=== PATIENT | female | born 1990 | race Caucasian/White ===

== ENCOUNTER 2018-04-26 23:05 | Emergency (ER) | payer SELFPAY ==
[~2018-04-26] VITALS: Ht 167.6 cm; Wt 52.2 kg
[~2018-04-26 23:05] MED LIST: DESV50TA PO; FERR325T28 PO
--- NOTE | 2018-04-26 23:07 | NUR ---
PT BIBSELF FROM HOME FOR FLU LIKE SYMPTOMS. PT AAOX4, RESPIRATIONS EVEN AND UNLABORED, NO SOB, NAD NOTED PT ON MONITOR, VSS, PENDING ER PROVIDER DUDLEY
[2018-04-26] MEDS ORDERED: KETOROLAC TROMETHAMINE INJ 30 MG/ML VIAL ONE (23:57)
[2018-04-26 23:59] LABS: BASOPHILS % (AUTO) 0.2 % (0.0-2.0); HEMATOCRIT 38 % (33-45); HEMOGLOBIN 13.2 g/dL (11.5-14.8); LYMPHOCYTES # (AUTO) 0.4 /CMM (0.8-4.8); LYMPHOCYTES % (AUTO) 6.5 % (20.0-44.0); MEAN CORPUSCULAR HGB CONC 35 g/dl (31.0-36.0); MEAN CORPUSCULAR VOLUME 88 fL (82-100); MONOCYTES # (AUTO) 0.3 /CMM (0.1-1.30); MONOCYTES % (AUTO) 4.9 % (2.0-12.0); NEUTROPHILS # (AUTO) 5.1 /CMM (1.8-8.9); NEUTROPHILS % (AUTO) 88.4 % (43.0-81.0); PLATELET COUNT (AUTO) 118 /CMM (150-450); RED BLOOD CELL COUNT(AUTO) 4.31 MIL/uL (4.0-5.2); WHITE BLOOD COUNT (AUTO) 5.7 K/uL (4.3-11.0)
[2018-04-27] MEDS ORDERED: KETOROLAC TROMETHAMINE INJ 30 MG/ML VIAL IV ONE
[2018-04-27] MEDS ORDERED: IV NS 0.9% 1,000 ML BAG IV ONE
[2018-04-27 00:08] LABS: CALCIUM, SERUM 8.7 mg/dL (8.5-10.1); CARBON DIOXIDE 28 mmol/L (21-32); CHLORIDE 101 mmol/L (98-107); CREATININE 0.7 mg/dL (0.6-1.3); GLUCOSE 149 mg/dL (74-106); POTASSIUM 3.3 mmol/L (3.5-5.1); SODIUM SERUM 137 mmol/L (136-145); UREA NITROGEN, BLOOD 6 mg/dL (7-18)
[2018-04-27 00:14] LABS: ALANINE AMINOTRANSFERASE 24 U/L (12-78); ALBUMIN 3.7 g/dL (3.4-5.0); ALKALINE PHOSPHATASE 64 U/L (46-116); ASPARTATE AMINOTRANSFERASE 23 U/L (15-37); BILIRUBIN,DIRECT 0.1 mg/dL (0.0-0.2); BILIRUBIN,TOTAL 0.3 mg/dL (0.2-1.0); TOTAL PROTEIN, SERUM 7.1 g/dL (6.4-8.2)
[2018-04-27] MEDS ORDERED: OSELTAMIVIR PHOSPHATE 75 MG CAPSULE ONE (01:34)
[2018-04-27] MEDS ORDERED: OSELTAMIVIR PHOSPHATE 75 MG CAPSULE PO ONE (02:00)
[2018-04-27 02:06] VITALS: BP 121/74
--- NOTE | 2018-04-27 02:07 | NUR ---
Patient discharged to home in stable condition. Written and verbal after care instructions given. Patient verbalizes understanding of instruction. IV removed. Catheter intact and site benign. Pressure and 4x4 applied to site. No bleeding noted.
== END 2018-04-27 02:08 | disposition home or self-care (01) ==
LOC: ER 23:05
DX: J18.9 Pneumonia, unspecified organism (principal); F41.9 Anxiety disorder, unspecified; F32.9 Major depressive disorder, single episode, unspecified; F17.200 Nicotine dependence, unspecified, uncomplicated; Z88.1 Allergy status to other antibiotic agents
CPT/HCPCS: 36415; 71045; 80048; 80076; 84484; 85025; 85730; 96360; 96361; 99284; A4606; J7030; Z7610; J1885

== ENCOUNTER 2018-07-16 18:54 | Emergency (ER) | payer SELFPAY ==
[~2018-07-16] VITALS: Ht 167.6 cm; Wt 52.2 kg
--- NOTE | 2018-07-16 19:00 | NUR ---
PT BIBSELF C/O ABD PAIN/CRAMPING X 1 WEEK, DIARRHEA X TODAY. PT AXO4. RESPIRATIONS EVEN AND UNLABORED. PT STATES SHE FEELS THE SAME WHEN SHE WAS DIAGNOSED W/ C. DIFF. PT PUT ON THE MONITOR AND PULSE OX.
--- NOTE | 2018-07-16 19:10 | NUR ---
PT AMBULATED WITH STEADY GAIT TO BATHROOM. URINE SAMPLE OBTAINED.
--- NOTE | 2018-07-16 19:14 | NUR ---
MANDIE SMITH AT BEDSIDE.
--- NOTE | 2018-07-16 19:16 | NUR ---
VERIFICATION SPECIALIST AT BEDSIDE. LABS SENT.
[2018-07-16] MEDS ORDERED: ATROPINE SULFATE INJ 1 MG/ML VIAL ONE (19:18)
[2018-07-16 19:21] LABS: APPEARANCE,URINE Clear (CLEAR); BILIRUBIN,URINE Negative (NEGATIVE); BLOOD, URINE Trace-lysed Ery/uL (NEGATIVE); COLOR,URINE Yellow (YELLOW); KETONES,URINE Negative (NEGATIVE); LEUKOCYTE ESTERASE ,URINE Negative (NEGATIVE); NITRITE, URINE Negative (NEGATIVE); PH,URINE 5.5 (5.0-8.0); PROTEIN,URINE Negative (NEGATIVE); UGLUCOSE Negative (NEGATIVE); UROBILINOGEN,URINE 0.2 EU/dL (0.2)
[2018-07-16 19:29] LABS: BASOPHILS % (AUTO) 0.2 % (0.0-2.0); HEMATOCRIT 39 % (33-45); HEMOGLOBIN 13.2 g/dL (11.5-14.8); LYMPHOCYTES # (AUTO) 0.3 /CMM (0.8-4.8); MEAN CORPUSCULAR HGB CONC 34 g/dl (31.0-36.0); MEAN CORPUSCULAR VOLUME 86 fL (82-100); MONOCYTES # (AUTO) 0.6 /CMM (0.1-1.30); MONOCYTES % (AUTO) 8.3 % (2.0-12.0); NEUTROPHILS # (AUTO) 6.2 /CMM (1.8-8.9); NEUTROPHILS % (AUTO) 87.5 % (43.0-81.0); PLATELET COUNT (AUTO) 159 /CMM (150-450)
[2018-07-16] MEDS ORDERED: IV NS 0.9% 1,000 ML BAG IV ONE (19:30)
[2018-07-16] MEDS ORDERED: ATROPINE SULFATE INJ 1 MG/ML VIAL IV ONE (19:30)
[2018-07-16 19:55] LABS: ALBUMIN 4.3 g/dL (3.4-5.0); BILIRUBIN,DIRECT 0.1 mg/dL (0.0-0.2); BILIRUBIN,TOTAL 0.3 mg/dL (0.2-1.0); CALCIUM, SERUM 8.9 mg/dL (8.5-10.1); CREATININE 0.9 mg/dL (0.6-1.3); POTASSIUM 3.7 mmol/L (3.5-5.1)
[2018-07-16 20:06] LABS: BACTERIA,URINE Rare /HPF (None Seen); SQUAMOUS EPITHELIAL CELL,UR Few /HPF (None Seen); WBC,URINE NONE SEEN /HPF (0-3)
--- NOTE | 2018-07-16 20:20 | NUR ---
PT AMBULATORY W/ STEADY GAIT TO BATHROOM. UNABLE TO GIVE STOOL SAMPLE. ER MEDICAL INVESTIGATOR AWARE.
[2018-07-16 20:22] LABS: TOTAL PROTEIN, SERUM 7.7 g/dL (6.4-8.2)
--- NOTE | 2018-07-16 20:36 | NUR ---
ER SURGICAL TECHNOLOGIST AT BESIDE RE-EVAL.
[2018-07-16 20:58] VITALS: BP 119/71
== END 2018-07-16 20:59 | disposition home or self-care (01) ==
LOC: ER 19:02
DX: R19.7 Diarrhea, unspecified (principal); F41.9 Anxiety disorder, unspecified; F32.9 Major depressive disorder, single episode, unspecified; F17.200 Nicotine dependence, unspecified, uncomplicated; R00.0 Tachycardia, unspecified; Z88.1 Allergy status to other antibiotic agents
CPT/HCPCS: 36415; 80048; 80076; 81001; 83690; 84703; 85025; 85730; 96360; 99283; J7030; 81000-TC; J0461

== ENCOUNTER 2018-11-15 20:16 | Emergency (ER) | payer MEDICAID ==
[~2018-11-15] VITALS: Ht 167.6 cm; Wt 52.2 kg
--- NOTE | 2018-11-15 20:27 | NUR ---
C/C PELVIC PAIN X1WK, BLEEDING IN BETWEEN PERIODS X2MO, INTERMITTENTLY RADIATES TO LOWER BACK. STATES PAIN 4/10. DENIES . FRIEND AT BEDSIDE. IN GOWN, ON MONITOR, READY FOR EVAL.
--- NOTE | 2018-11-15 20:46 | NUR ---
PROGRAM MANAGEMENT MANAGER AT BEDSIDE
[2018-11-15] MEDS ORDERED: IV NS 0.9% 1,000 ML BAG IV ONE (21:00)
[2018-11-15 21:03] LABS: APPEARANCE,URINE Clear (CLEAR); BILIRUBIN,URINE Negative (NEGATIVE); BLOOD, URINE Small Ery/uL (NEGATIVE); COLOR,URINE Yellow (YELLOW); KETONES,URINE Negative (NEGATIVE); LEUKOCYTE ESTERASE ,URINE Negative (NEGATIVE); NITRITE, URINE Negative (NEGATIVE); PROTEIN,URINE Negative (NEGATIVE); UGLUCOSE Negative (NEGATIVE); UROBILINOGEN,URINE 0.2 EU/dL (0.2)
--- NOTE | 2018-11-15 21:03 | NUR ---
IV ACCESS OBTAINED, BLOOD DRAWN AND SENT TO STAT LAB
[2018-11-15 21:04] LABS: BASOPHILS % (AUTO) 0.4 % (0.0-2.0); EOSINOPHILS % (AUTO) 0.6 % (0.0-6.0); HEMATOCRIT 40 % (33-45); HEMOGLOBIN 13.8 g/dL (11.5-14.8); LYMPHOCYTES # (AUTO) 1.1 /CMM (0.8-4.8); MEAN CORPUSCULAR HGB CONC 34 g/dl (31.0-36.0); MEAN CORPUSCULAR VOLUME 86 fL (82-100); MONOCYTES # (AUTO) 0.5 /CMM (0.1-1.30); MONOCYTES % (AUTO) 7.2 % (2.0-12.0); NEUTROPHILS % (AUTO) 74.8 % (43.0-81.0); PLATELET COUNT (AUTO) 227 /CMM (150-450); RED BLOOD CELL COUNT(AUTO) 4.67 MIL/uL (4.0-5.2); WHITE BLOOD COUNT (AUTO) 6.7 K/uL (4.3-11.0)
[2018-11-15 21:12] LABS: BACTERIA,URINE Few /HPF (None Seen); SQUAMOUS EPITHELIAL CELL,UR Few /HPF (None Seen); URINE AMORPHOUS URATE Rare /HPF (None Seen); WBC,URINE 0-2 /HPF (0-3)
[2018-11-15 21:14] LABS: CREATININE 0.7 mg/dL (0.6-1.3); POTASSIUM 3.6 mmol/L (3.5-5.1)
[2018-11-15 21:20] LABS: ALBUMIN 4.3 g/dL (3.4-5.0); BILIRUBIN,DIRECT 0.1 mg/dL (0.0-0.2); BILIRUBIN,TOTAL 0.4 mg/dL (0.2-1.0); TOTAL PROTEIN, SERUM 7.7 g/dL (6.4-8.2)
--- NOTE | 2018-11-15 21:30 | NUR ---
VINNY RODRÍGUEZ AT BEDSIDE FOR PELVIC EXAM
--- NOTE | 2018-11-15 22:52 | NUR ---
VINNY RODRÍGUEZ AT BEDSIDE TO DISCUSS CURRENT PLAN
--- NOTE | 2018-11-15 23:14 | NUR ---
IV removed. Catheter intact and site benign. Pressure and 4x4 applied to site. No bleeding noted.Patient discharged to home in stable condition. Written and verbal after care instructions given. Patient verbalizes understanding of instruction.
[2018-11-15 23:16] VITALS: BP 116/84
== END 2018-11-15 23:17 | disposition home or self-care (01) ==
LOC: ER 20:18
DX: R10.2 Pelvic and perineal pain (principal); F41.9 Anxiety disorder, unspecified; F32.9 Major depressive disorder, single episode, unspecified; F17.200 Nicotine dependence, unspecified, uncomplicated; Z88.1 Allergy status to other antibiotic agents
CPT/HCPCS: 36415; 76856; 80048; 80076; 81001; 84703; 85025; 87086; 87210; 99284; J7030; 81000-TC

== ENCOUNTER 2019-01-20 20:55 | Emergency (ER) | payer MEDICAID ==
[~2019-01-20] VITALS: Ht 167.6 cm; Wt 52.2 kg
[2019-01-20 21:14] VITALS: BP 115/70
== END 2019-01-20 22:15 | disposition home or self-care (01) ==
LOC: ER 20:58
DX: Z76.0 Encounter for issue of repeat prescription (principal); F41.9 Anxiety disorder, unspecified; F32.9 Major depressive disorder, single episode, unspecified; F17.200 Nicotine dependence, unspecified, uncomplicated; Z88.1 Allergy status to other antibiotic agents; Z79.899 Other long term (current) drug therapy

== ENCOUNTER 2019-02-11 14:12 | Emergency (ER) | payer MEDICAID | END 2019-02-11 16:22 | disposition home or self-care (01) | LOC: ER 14:23 | DX: F32.9 Major depressive disorder, single episode, unspecified (principal); N60.12 Diffuse cystic mastopathy of left breast; F41.9 Anxiety disorder, unspecified; F17.200 Nicotine dependence, unspecified, uncomplicated; Z88.1 Allergy status to other antibiotic agents; Z79.899 Other long term (current) drug therapy ==

== ENCOUNTER 2019-03-15 14:54 | Emergency (ER) | payer MEDICAID, OTHER ==
[~2019-03-15] VITALS: Ht 167.6 cm; Wt 54.4 kg
[2019-03-15 15:55] VITALS: BP 101/83
== END 2019-03-15 17:22 | disposition home or self-care (01) ==
LOC: ER 15:02
DX: F32.9 Major depressive disorder, single episode, unspecified (principal); Z76.0 Encounter for issue of repeat prescription; F17.200 Nicotine dependence, unspecified, uncomplicated; F41.9 Anxiety disorder, unspecified; Z88.1 Allergy status to other antibiotic agents; Z79.899 Other long term (current) drug therapy

== ENCOUNTER 2022-05-31 22:33 | Emergency (ER) | payer OTHER ==
[~2022-05-31] VITALS: Ht 167.6 cm; Wt 64.0 kg
[2022-05-31 22:46] VITALS: BP 118/77
--- NOTE | 2022-05-31 22:46 | NUR ---
BIBSELF from home c/o medrefill effexor xr 75 mg
[2022-05-31] MEDS ORDERED: VENL37.55 PO (23:02)
--- NOTE | 2022-05-31 23:20 | NUR ---
Patient discharged to home in stable condition. Written and verbal after care instructions given. Patient verbalizes understanding of instruction.
== END 2022-05-31 23:20 | disposition home or self-care (01) ==
LOC: ER 22:43
DX: Z76.0 Encounter for issue of repeat prescription (principal); F41.9 Anxiety disorder, unspecified; F32.A Depression, unspecified; Z88.8 Allergy status to other drugs, medicaments and biological substances